=== PATIENT | female | born 1955 | race Caucasian/White ===

== ENCOUNTER → 2020-11-24 | Outpatient (CLI) | payer BC | LOC: KOH-I 15:00 | DX: F17.210 Nicotine dependence, cigarettes, uncomplicated (principal); N63.10 Unspecified lump in the right breast, unspecified quadrant | CPT/HCPCS: 71271 ==

== ENCOUNTER 2021-09-03 13:22 | Emergency (ER) | payer OTHER ==
[2021-09-03 14:17] LABS: HEMOGLOBIN 14.8 gm/dl (12.3-15.3); RED BLOOD COUNT 5.17 M/UL (4.00-5.10); WHITE BLOOD COUNT 15.6 K/UL (4.5-11.0)
[2021-09-03] MEDS ORDERED: OMNICEF 300 MG300 MG PO (16:08)
[2021-09-03] MEDS ORDERED: HYDROCODON-ACE1 EAC4 PO (16:09)
== END 2021-09-03 17:00 | disposition home or self-care (01) ==
LOC: ER1 13:22
PROVIDERS: Emergency Medicine
DX: N13.2 Hydronephrosis with renal and ureteral calculous obstruction (principal); I11.9 Hypertensive heart disease without heart failure; E11.9 Type 2 diabetes mellitus without complications; F17.200 Nicotine dependence, unspecified, uncomplicated
CPT/HCPCS: 80053; 81001; 82550; 82553; 83605; 83690; 83874; 84484; 85025; 87086; 93005; 96374; 96375; 99285; J0696; J1885; J2270; J2405; J7040; Q9967

== ENCOUNTER → 2021-10-08 | Outpatient (CLI) | payer OTHER ==
[~2021-10-08] MED LIST: HYDROCODON-ACE1 EAC4 PO; OMNICEF 300 MG300 MG PO
== END ==
LOC: KOH-I 15:07
DX: M25.562 Pain in left knee (principal); M17.12 Unilateral primary osteoarthritis, left knee
CPT/HCPCS: 73560

== ENCOUNTER → 2021-12-03 | Outpatient (CLI) | payer OTHER | LOC: KOH-I 14:00 | DX: F17.210 Nicotine dependence, cigarettes, uncomplicated (principal) | CPT/HCPCS: 71271 ==

== ENCOUNTER 2022-02-22 11:13 | Emergency (ER) | payer OTHER ==
[2022-02-22 12:00] LABS: HEMOGLOBIN 14.7 gm/dl (12.3-15.3); RED BLOOD COUNT 5.1 M/UL (4.00-5.10); WHITE BLOOD COUNT 5.1 K/UL (4.5-11.0)
[2022-02-22 12:15] LABS: BUN/CREATININE RATIO 16 (0-10)
== END 2022-02-22 14:46 | disposition home or self-care (01) ==
LOC: ER1 11:13
PROVIDERS: Nurse Practitioner
DX: U07.1 COVID-19 (principal); Z23 Encounter for immunization; E11.9 Type 2 diabetes mellitus without complications; F17.210 Nicotine dependence, cigarettes, uncomplicated; Z88.8 Allergy status to other drugs, medicaments and biological substances; Z88.6 Allergy status to analgesic agent
CPT/HCPCS: 71045; 80053; 85025; 99283; M0222